=== PATIENT | male | born 1950 | race Caucasian/White ===

== ENCOUNTER → 2016-10-22 | Day surgery (SDC) | payer BC | LOC: SDSC 11:39 | PROVIDERS: ATTEND Surgery | DX: K21.9 Gastro-esophageal reflux disease without esophagitis (principal) ==

== ENCOUNTER 2016-11-11 09:34 | Day surgery (SDC) | payer BC ==
[~2016-11-11 09:34] MED LIST: LIDOCAINE W/ SODIUM BICARB 0.5 ML SYR ONE; Lactated Ringers 1,000 ML PRIMARY IV ONE
[2016-11-11] MEDS ORDERED: LIDOCAINE 2% VISCOUS(20 MG/1 ML) - 15 ML UD CUP PO ONE (10:54)
[2016-11-11] MEDS ORDERED: diphenhydrAMINE 50 MG/1 ML VIAL ONE (10:55)
[2016-11-11 11:01] VITALS: RESP 18
--- NOTE | 2016-11-11 11:31 | GEN.OPNOTE ---
EGD / Colonoscopy Report Surgery Date: 11/11/16 Preoperative Diagnosis: GERD. Family history of colon cancer. Postoperative Diagnosis: Same. Procedure: #1 esophagogastroduodenoscopy with biopsy. #2 complete colonoscopy. Surgeon: Jorge Naqvi MD Anesthesia Provider: Amara Pena CRNA Anesthesia Type: MAC Indications: See preoperative diagnosis. EGD Findings: Esophagus: [Normal] GE Junction : [Some mild irregularity] Fundus : [Normal] Body : [Normal] Prepyloric : [Erythema and mild friability.] Small Intestine : [Normal] A lubricated flexible upper endoscope was inserted and passed through the esophagus and stomach into the duodenum. The duodenum and duodenal bulb appeared unremarkable. The pyloric channel was patent. Entire body of the stomach was unremarkable with exception of some erythema and friability antrum. Multiple biopsies were taken. Hemostasis was assured. The scope was withdrawn into the distal esophagus. There was some irregularity at the GE junction. Multiple biopsies were taken. Hemostasis was assured. The scope was withdrawn through the remainder of a normal-appearing esophagus and brought through the hypopharynx under suction completing the procedure Colonoscopy Findings: Prep : [Excellent] Cecum : [Normal] Ascending : [Normal] Transverse : [Normal] Sigmoid : [Normal] Rectum : [Normal] Digital Rectal Exam : [Enlarged. Nonnodular.] A lubricated flexible colonoscope was inserted and passed to the blind end of the cecum. Air was aspirated as the scope was withdrawn. The entire colonoscopy was normal without polyp, tumor, neoplastic mass, infectious or inflammatory process. The scope was withdrawn completing the procedure. The patient tolerated all aspects of the procedure well without complication. He was taken to outpatient surgery in stable condition. We will call the biopsy results when available. Further recommendations pending pathologic analysis. Recommend follow-up colonoscopy in 10 years time.
[2016-11-11] MEDS ORDERED: Lactated Ringers 1,000 ML PRIMARY IV ONE (11:35)
[2016-11-11] MEDS ORDERED: KETOROLAC 30 MG/1 ML VIAL ONE (11:53)
[2016-11-11 15:09] VITALS: TEMP 97.5
== END 2016-11-11 12:10 | disposition home or self-care (01) ==
LOC: SDSC 09:34
PROVIDERS: ATTEND Surgery
DX: K21.9 Gastro-esophageal reflux disease without esophagitis (principal); Z80.0 Family history of malignant neoplasm of digestive organs
CPT/HCPCS: 43239; 45378; J1200; J1885; J2704; J7120